=== PATIENT | male | born 1960 | race Caucasian/White ===

== ENCOUNTER 2025-02-01 12:56 | Outpatient (AMB) | payer BC, SELFPAY ==
[2025-02-01 13:27] VITALS: BP 114/72; PULSE 60; O2SAT 98; BMI 33.2
--- NOTE | 2025-02-01 13:27 | A.OFFPC_ITS ---
Vital Signs 02/01/25 13:27 Height 4 ft 9.87 in Weight 158 lb BMI 33.2 BP 114/72 Blood Pressure Location Rt brachial Position Sitting Pulse 60 Pulse Source Pulse Oximeter Pulse Oximetry (%) 98 Oxygen Delivery Method Room Air Intake Visit Reasons: Establish Care Allergies hydromorphone (From Dilaudid) Allergy (Intermediate, Verified 02/01/25 13:33) Nausea and Vomiting erythromycin base Adverse Reaction (Intermediate, Unverified 02/01/25 13:54) rash Medication List - Last Reconciled 02/01/25 by Anahy Martinez MD acyclovir 400 mg PO BID PRN albuterol sulfate 90 mcg/actuation (Ventolin HFA) 2 puffs inhalation Q4-6H PRN atorvastatin (Lipitor) 10 mg orally; Take wednesday and wednesday bortezomib (Velcade) 2.4 mg IV QWEEK cetirizine 10 mg PO DAILY PRN clobetasol 0.05% 1 appl topical DAILY clotrimazole-betamethasone 1-0.05 % 1 appl topical BID daratumumab (Darzalex) IV denosumab (Xgeva) 120 mg subcut Q4W lenalidomide 25 mg PO DAILY loratadine (Allergy Relief (loratadine)) 10 mg PO DAILY lorazepam 0.5 mg PO DAILY PRN montelukast 10 mg PO DAILY ondansetron 8 mg PO Q8H oxycodone 5 mg PO Q6H PRN prochlorperazine maleate (Compazine) 10 mg PO BID PRN propranolol 60 mg PO TID sulfamethoxazole-trimethoprim 800-160 mg 1 tab orally MWF; Wednesday and Fridays Tobacco use date assessed: 02/01/25 Dental Screening Dental Screen Date: 02/01/25 Did you have a dental visit in the last 12 months?: Yes Did you have a dental problem in the last 6 months where you did not have access to dental care?: No Was dental information given to patient?: Patient has dentist HPI Establish Care HPI Details June 30, 2024 could not stand had back pain, then was taking a bath , heard a snap on the back. compression fracture. states 7 compression fracture had kyphoplasty 06/2024 and november on kyphoplasdty biopsy done - showing MM then PET scan spine and femur HPI Comments History of Present Illness Details History of Present Illness The patient is a 64-year-old individual presenting for a new patient [facility] visit with a recent diagnosis of multiple myeloma. The patient was diagnosed with multiple myeloma in October of this year after presenting with symptoms that began in June. Initially, the patient experienced a sudden inability to get up from bed, prompting an emergency room visit. About a month later, the patient heard a snap in the back while showering, which was associated with severe pain. An investigation revealed seven compression fractures in the thoracic and lumbar spine. The patient underwent kyphoplasty for four of these fractures in October and November. During the procedure, a bone biopsy of T11 was performed, which revealed abnormal cells and led to the multiple myeloma diagnosis. A recent PET scan showed disease sites at T11 and the upper left femur, as well as a new compression fracture at T7. The patient's cancer is being managed by oncologist Dr. Francisco Whitfield and the treatment regimen includes bortezomib (Velcade), Darzalex, and lenalidomide. Supportive care includes denosumab (Xgeva) once a month for bone health, acyclovir, and Bactrim on Mondays, Wednesdays, and Fridays. Chemotherapy has been held for the past two weeks due to leukopenia, with a recent white blood cell count of 2.7. The patient also reports significant anemia and anorexia with a nearly 40-pound weight loss. Past medical history is notable for hypertension, historically managed with propranolol which was initially prescribed for hormonal migraines that have since resolved. Past surgical history includes an endometrial ablation and a D&C in 2005. The patient reports allergies to erythromycin, which causes a rash, and to Dilaudid. Family history is significant for pancreatic cancer in the patient's mother and sister, and colon cancer in the mother at age 42. Genetic testing revealed a variant of unknown significance which is also present in the sisters with cancer. The patient's father had a mild heart attack at age 38. Health Maintenance - Colonoscopy: Last performed two years ago and is on a 5-year screening interval. - Mammogram: Reports having one in September 2024. - Bone Density Scan: Reports having one on September 14, 2024. - Immunizations: The patient completed t he 2-dose shingles vaccine series last month and is due for a tetanus vaccination. - The patient will coordinate the flu sh ot with the oncologist and declines the pneumonia vaccine at this time. - Eye Exam: Last performed one year ago. - Dental Exam: Last performed last month , with normal results. Social History - Tobacco Use: Former smoker, used cigar ettes from 1979 to 1981, and has since quit. - Alcohol Use: Reports drinking socially and infrequently, less than once every three months. - Illicit Drug Use: Denies any recreatio nal drug use. - Nutrition: Reports a weight loss of al most 40 pounds since beginning chemotherapy, attributing it to poor appetite. - The patient has met with a nutritionis t and uses Ensure Plus to supplement nutritional intake, especially as the chemotherapy pill causes anorexia. Results - Labs: - White blood cell count: 2.7 from a rec ent test. - Blood sugar: 93, within normal limits. - Magnesium: Within normal limits on las t week's test. - Procedures: - Bone biopsy (T11): Showed abnormal oscar ls, leading to diagnosis of multiple myeloma. - Imaging: - PET scan: Revealed sites of disease in T11 and the upper left femur, and identified a new compression fracture at T7. [facility] Surgical History (Updated 02/01/25 @ 14:06 by Anahy Martinez MD) History of kyphoplasty S/P endometrial ablation Family History (Updated 02/01/25 @ 14:09 by Anahy Martinez MD) Mother Pancreatic cancer Colon cancer, Onset Age: 42 Father Heart attack Sister Pancreatic cancer Sister Pancreatic cancer Sister No problems noted. Sister No problems noted. Paternal Grandmother Heart attack Other Substance use disorder Social History (Updated 02/01/25 @ 14:11 by Anahy Martinez MD) Housing: House Alcohol intake: current Comment: once Q 3 months Patient Tobacco Use Status: Never used Tobacco Tobacco use type: Cigarette Years Smoked: [id number] e-Cigarette/Vaping Use: Never Used Second Hand Smoke Exposure: No service: No Current occupational status: retired Current occupational exposures/hazards: No Cognitive needs: No Hearing needs: No Vision needs: Yes Questionnaire PHQ-9 Over the last 2 weeks, how often have you been bothered by any of the following problems? 1. Little interest or pleasure in doing things: not at all 2. Feeling down, depressed, or hopeless: not at all 3. Trouble falling or staying asleep, or sleeping too much: not at all 4. Feeling tired or having little energy: nearly every day 5. Poor appetite or overeating: more than half the days 6. Feeling bad about yourself - or that you are a failure or have let yourself or your family down: not at all 7. Trouble concentrating on things, such as reading the newspaper or watching television: not at all 8. Moving or speaking so slowly that other people could have noticed. Or the opposite - being so fidgety or restless that you have been moving around a lot more than usual: not at all 9. Thoughts that you would be better off or of hurting yourself in some way: not at all Total score: 5 Depression Screening Interpretation: Positive Depression Screening Done: Yes Source: Developed by Drs. Brett Velez, Vane Laurent, Francisco Blackman and colleagues, with an educational noemí from [employer]. Thrive Questionnaire Date Thrive assessed: 02/01/25 I am a: Patient What is your living situation today?: I have a steady place to live Within the past 12 months, did the food you bought not last and you didn't have the money to get more?: Never true Within the past 12 months, did you worry whether your food would run out before you got money to buy more?: I choose not to answer this question Do you have trouble paying for medicines?: I choose not to answer this question Do you have trouble getting transportation to medical appointments?: I choose not to answer this question Do you have trouble paying your heating and electricity bill?: I choose not to answer this question Do you have trouble taking care of your child, family member or friend?: I choose not to answer this question Do you have trouble with day-to-day activities such as bathing, preparing meals, shopping, managing finances, etc.?: I choose not to answer this question Are you currently unemployed and looking for a job?: I choose not to answer this question Are you interested in more education?: I choose not to answer this question Please select the resources that you would like help with: None Currently or been in a relationship where the following occur: No concerns reported THRIVE Score: 0 AUDIT C Alcohol Use Questionnaire (AUDIT-C) 1. How often do you have a drink containing alcohol?: Monthly or less 2. How many drinks containing alcohol do you have on a typical day when you are drinking?: 1 or 2 3. How often do you have six or more drinks on one occasion?: Never Total Score: 1 ALONZO-7 AMB Questionnaire ALONZO-7 Date ALONZO - 7 assessed: 02/01/25 Feeling nervous, anxious, or on edge: 0 = Not at all Not being able to stop or control worryin = Not at all Worrying too much about different things: 0 = Not at all Trouble relaxin = Not at all Being so restless that it is hard to sit still: 0 = Not at all Becoming easily annoyed or irritable: 0 = Not at all Feeling afraid as if something awful might happen: 0 = Not at all Total ALONZO-7 score (0-4 normal; 5-9 mild; 10-14 moderate; 15-21 severe): 0 Source: Developed by Drs. Brett Velez, Vane Laurent, Francisco Blackman and colleagues, with an educational noemí from [employer]. Review of Systems Narrative Review of Systems - Constitutional: Reports fatigue and hot flashes. - Musculoskeletal: Reports a history of severe back pain and multiple compression fractures. - Skin: Reports an intermittent itchy rash treated with topical creams as needed. - Gastrointestinal: Reports nausea and anorexia when taking oral chemotherapy. - Neurological: Reports a history of migraines that have resolved. - All other systems reviewed and are negative. Physical exam (Primary Care) Vital Signs: Last Vital Signs Pulse 60 02/01/25 13:27 BP 114/72 02/01/25 13:27 Pulse Ox 98 02/01/25 13:27 Oxygen Delivery Method Room Air 02/01/25 13:27 BMI result Body Mass Index 33.2 Tobacco/Smoking Status: Tobacco use Status Tobacco use date assessed 02/01/25 02/01/25 13:45 Patient Tobacco Use Status Never used Tobacco 02/01/25 14:11 Tobacco use type Cigarette 02/01/25 14:11 e-Cigarette/Vaping Use Never Used 02/01/25 14:11 PHQ-9: PHQ-9 Score PHQ-9: Total score 5 02/01/25 14:08 Depression Screening Interpretation: Positive Thrive Assessment: Date of Thrive Assessment Date Thrive assessed 02/01/25 02/01/25 13:27 Currently or been in a relationship where the following occur: No concerns reported Narrative Physical Exam General: Cooperative, healthy appearing, comfortable, no acute distress and well developed Orientation: Patient oriented x3 Limitations: No limitations Head: Normal to inspection Ears: Hearing grossly normal bilaterally Nose: Normal external nose present Face and sinus: Normal facial exam Eyes: Appearance normal, both eyes and all related structures Neck: Normal visual inspection and Yes full ROM Respiratory: Normal respiratory effort and able to speak in complete sentences. Clear to auscultation bilaterally Cardiovascular: Regular rate and rhythm. Normal S1 and S2 GI: Normal to inspection. Soft to palpation and nontender Skin: No rashes or lesions noted Neuro: Patient oriented x3 Extremities: Normal to inspection Const General: alert; No acute distress Eyes Conjunctivae: conjunctivae normal Resp Auscultation: clear to auscultation bilaterally Cardio Rate: regular rate Rhythm: regular rhythm GI Inspection: Yes normal to inspection Extrem General: Yes normal to inspection and No edema Coding Level of Care Code New Pt Level 4 (09343) Diagnoses Migraine G43.909 Hypertension I10 Hypercholesterolemia E78.00 Multiple myeloma C90.00 Compression fracture of lumbar spine, non-traumatic M48.56XA Compression fracture of thoracic vertebra S22.000A Anemia D64.9 Assessment & Plan Assessment & Plan (1) Migraine: Code(s): G43.909 - Migraine, unspecified, not intractable, without status migrainosus Category: Medical Plan: Patient is advised to eat healthy, keep well hydrated, keep active and have adequate sleep. (2) Hypertension: Code(s): I10 - Essential (primary) hypertension Category: Medical Plan: Continue with blood pressure medication. Decrease salt intake and exercise patient is on propranolol for this (3) Hypercholesterolemia: Code(s): E78.00 - Pure hypercholesterolemia, unspecified Category: Medical Plan: Avoid fried foods, chicken skin, eggs, butter margarine, pastries and meat. Be it pork or beef they have a lot of cholesterol on atorvastatin patient is requested to have blood work done (4) Multiple myeloma: Comment: [facility] 2024 Osmel alvarado M.d. Code(s): C90.00 - Multiple myeloma not having achieved remission Category: Medical Plan: Continue to follow-up with Hematology-Oncology in [place] (5) Compression fracture of lumbar spine, non-traumatic: Comment: 10/2024 status post kyphoplasty Code(s): M48.56XA - Collapsed vertebra, not elsewhere classified, lumbar region, initial encounter for fracture Category: Medical Plan: Patient is being followed up by endovascular (6) Compression fracture of thoracic vertebra: Comment: 10/2024, status post kyphoplasty Code(s): S22.000A - Wedge compression fracture of unspecified thoracic vertebra, initial encounter for closed fracture Category: Medical (7) Anemia: Code(s): D64.9 - Anemia, unspecified Category: Medical Plan: Blood work requested Plan Plan Patient was informed and verbally consented to the use of an ambient scribe for clinic note documentation during this visit. 1. Multiple Myeloma The patient is under the care of oncologist Dr. Francisco Whitfield. The chemotherapy regimen has been on hold for the past two weeks due to a low white blood cell count of 2.7. Will continue to coordinate care with oncology. 2. Pathologic Vertebral Compression Fractures The patient has a history of seven pathologic compression fractures secondary to multiple myeloma, with four treated via kyphoplasty. A new fracture was seen at T7 on the most recent PET scan. The patient is receiving Xgeva once monthly for bone strengthening. The mechanism of kyphoplasty potentially causing adjacent fractures was discussed, while acknowledging its necessity for pain management given the underlying bone fragility from cancer. 3. Leukopenia The patient was counseled on the importance of infection prevention due to the low white blood cell count. It was strongly recommended that the patient wear a mask in public and crowded indoor spaces, such as waiting rooms and hindu. It was explained that prophylactic medications are helpful but do not replace the need for physical barriers to reduce infection risk. 4. Health Maintenance / New Patient Establishment A lab requisition was provided for a fasting blood draw to check a lipid panel, thyroid panel (TSH), iron studies, vitamin B12, vitamin D, and a urinalysis. The patient will have these labs drawn during the next weekly oncology appointment. The patient's immunization status was reviewed; a tetanus shot is needed. It was recommended to coordinate the timing of the annual flu shot with the oncologist. The patient deferred the pneumonia vaccine for now. 5. Hypertension The patient will continue propranolol as prescribed and will call for refills when low. The patient was counseled on the latest recommendations regarding alcohol, which advise zero intake for individuals with hypertension. 6. Hyperlipidemia The patient will continue taking atorvastatin on Mondays and Fridays. Cholesterol levels will be re-evaluated with the ordered lab work to determine if the medication is still necessary following the patient's significant weight loss. Discussion Notes I conducted a new patient visit with this 64-year-old individual, reviewing an extensive history, including a recent diagnosis of multiple myeloma. We discussed the diagnostic journey, which began with multiple pathologic compression fractures and led to a bone biopsy confirming the cancer. I explained the relationship between the weak bones and the myeloma, and the rationale for kyphoplasty despite the risk to adjacent vertebrae. Given the patient's leukopenia (WBC 2.7) and halted chemotherapy, I strongly emphasized the importance of infection prevention. I advised wearing a mask in crowded public spaces, explaining that the prophylactic medications being taken are not a substitute for this precaution. I provided a lab requisition for baseline studies, including lipids, thyroid function, iron, B12, and vitamin D, to be drawn with the next oncology labs. We reviewed the vaccination history, noting the need for a tetanus shot and a coordinated plan with oncology for the flu shot. I instructed the patient on using the patient portal for more efficient communication and to ensure lab results are sent to my office. Patient Instructions - Due to your low white blood cell count, it is very important to protect yourself from infection. - Please wear a mask when you are in public places with other people, like the doctor's waiting room or at hindu. - I have given you a lab slip for blood work. - Please take it with you to your next lab appointment and ask them to send the results to me. - Some of these tests require you to fast beforehand. - Your immunizations are mostly up to date, but you are due for a tetanus shot. - Continue taking your current medications, and call our office for refills on your blood pressure and cholesterol medicine. - For the fastest response to questions, please send a message through the online patient portal. - We discussed that current guidelines advise against drinking alcohol if you have high blood pressure. Orders: Orders Complete Blood Count Auto Diff Today E78.00 - Pure hypercholesterolemia, unspecified Free T4 (Free Thyroxine) Today E78.00 - Pure hypercholesterolemia, unspecified Vitamin B12 and Folate Today E78.00 - Pure hypercholesterolemia, unspecified IRON PROFILE Today E78.00 - Pure hypercholesterolemia, unspecified UA CC w/rflx Micro + Cult Today E78.00 - Pure hypercholesterolemia, unspecified, R30.0 - Dysuria Hemoglobin A1c Today E78.00 - Pure hypercholesterolemia, unspecified Comprehensive Met. Panel Today E78.00 - Pure hypercholesterolemia, unspecified Ferritin Today E78.00 - Pure hypercholesterolemia, unspecified Reticulocyte Count Today E78.00 - Pure hypercholesterolemia, unspecified Lipid Panel Today E78.00 - Pure hypercholesterolemia, unspecified Thyroid Stimulating Hormone Today E78.00 - Pure hypercholesterolemia, unspecified Vitamin D 25-OH Total Today E78.00 - Pure hypercholesterolemia, unspecified
== END 2025-02-01 14:25 | disposition home or self-care (01) ==
LOC: HO.HMCH 12:57
PROVIDERS: PCP Internal Medicine; Visit Provider Internal Medicine
DX: G43.909 Migraine, unspecified, not intractable, without status migrainosus (principal); I10 Essential (primary) hypertension; E78.00 Pure hypercholesterolemia, unspecified; C90.00 Multiple myeloma not having achieved remission; M48.56XA Collapsed vertebra, not elsewhere classified, lumbar region, initial encounter for fracture; S22.000A Wedge compression fracture of unspecified thoracic vertebra, initial encounter for closed fracture; D64.9 Anemia, unspecified